=== PATIENT | female | born 1970 | race Caucasian/White ===

== ENCOUNTER → 2022-03-08 | Outpatient (CLI) | payer OTHER ==
[~2022-03-08] MED LIST: RT-ALBUTEROL SULF 2.5 MG/3 ML PRE-MIX VIAL INH ONE
== END ==
LOC: RT 13:00
PROVIDERS: ATTEND Family Medicine
DX: Z02.71 Encounter for disability determination (principal); J44.9 Chronic obstructive pulmonary disease, unspecified
CPT/HCPCS: 94060

== ENCOUNTER → 2022-06-09 | Outpatient (CLI) | payer OTHER ==
--- NOTE | 2022-06-09 13:33 | Diagnostic Imaging Report ---
EXAMINATION: Left knee radiographs, 2 views. COMPARISON: None. HISTORY: 52-year-old female, left knee pain. FINDINGS: There is moderate to severe medial and patellofemoral compartment joint space loss. There is no knee joint effusion. There are ossifications posteriorly likely reflecting intra-articular bodies. These measure up to approximately 6 mm in size. There is no identified acute fracture. IMPRESSION: 1. Moderate to severe medial and patellofemoral compartment osteoarthritis without knee joint effusion. Probable intra-articular ossified bodies posteriorly. Dictated by: Dictated on workstation # [id number]
--- NOTE | 2022-06-09 13:34 | Diagnostic Imaging Report ---
EXAMINATION: Pelvis, single view. Right hip, 2 additional views. COMPARISON: None. HISTORY: 52-year-old female, pelvic and right hip pain. FINDINGS: The pubic symphysis and sacral iliac joints are normally aligned. The hips are not dislocated. There is no joint space loss of either hip, osteophyte formation, or subchondral cystic change. There is no identified acute fracture. There are disc and facet degenerative changes at L4-L5 and L5-S1. IMPRESSION: 1. Unremarkable evaluation of both hip joints. 2. Disc and facet degenerative changes at L4-L5 and L5-S1. Dictated by: Dictated on workstation # [id number]
== END ==
LOC: RAD 10:55
PROVIDERS: ATTEND Family Medicine
DX: Z02.71 Encounter for disability determination (principal); M17.12 Unilateral primary osteoarthritis, left knee; M47.817 Spondylosis without myelopathy or radiculopathy, lumbosacral region; M51.37 Other intervertebral disc degeneration, lumbosacral region
CPT/HCPCS: 73560